=== PATIENT | female | born 1965 | race Caucasian/White ===

== ENCOUNTER → 2018-11-11 | Outpatient (CLI) | payer BC ==
[~2018-11-11] MED LIST: CELEXA 20MG20 MG/TAB PO; PHENERGAN 25 TA25 MG PO
== END ==
LOC: MC.RAD 09:42
DX: Z12.31 Encounter for screening mammogram for malignant neoplasm of breast (principal)

== ENCOUNTER → 2021-01-06 | Outpatient (CLI) | payer BC | LOC: MC.RAD 13:30 | DX: Z12.31 Encounter for screening mammogram for malignant neoplasm of breast (principal); N64.89 Other specified disorders of breast; N63.20 Unspecified lump in the left breast, unspecified quadrant ==

== ENCOUNTER → 2021-01-13 | Outpatient (CLI) | payer BC | LOC: MC.RAD 12:55 | DX: N64.89 Other specified disorders of breast (principal); N63.20 Unspecified lump in the left breast, unspecified quadrant ==

== ENCOUNTER → 2021-07-17 | Outpatient (CLI) | payer BC | LOC: MC.RAD 10:59 | DX: N60.01 Solitary cyst of right breast (principal); N63.20 Unspecified lump in the left breast, unspecified quadrant ==

== ENCOUNTER → 2022-12-22 | Outpatient (CLI) | payer BC | LOC: COL.RAD 11:15 | DX: M79.604 Pain in right leg (principal); M79.605 Pain in left leg ==

== ENCOUNTER → 2022-12-23 | Outpatient (CLI) | payer BC | LOC: COL.RAD 08:45 | DX: M79.604 Pain in right leg (principal); M79.605 Pain in left leg; Z96.651 Presence of right artificial knee joint | CPT/HCPCS: Q9967 ==

== ENCOUNTER → 2023-03-16 | Outpatient (CLI) | payer BC | LOC: MC.RAD 11:43 | DX: Z12.31 Encounter for screening mammogram for malignant neoplasm of breast (principal) ==